=== PATIENT | female | born 1950 | race Caucasian/White ===

== ENCOUNTER 2023-01-11 23:15 | Emergency (ER) | payer MEDICARE, BC, SELFPAY ==
--- NOTE | 2023-01-11 23:46 | CRLHL7_ITS ---
For Patients: As a result of the Century Cures Act, medical imaging exams and procedure reports are released immediately into your electronic medical record. You may view this report before your referring provider. If you have questions, please contact your health care provider. Indication: Trauma. Technique: Right ankle, 3 views. Comparison: None. Findings/Impression: Bones: Acute nondisplaced/minimally displaced oblique lateral malleolar fracture. Joint spaces: Associated joint effusion. Ankle mortise appears congruent. Soft tissues: Associated soft tissue swelling. Dictated by Phong Fischer MD @ 01/12/2023 12:13:32 AM (Electronically Signed)
[2023-01-11 23:51] VITALS: BP 131/85; PULSE 74; RESP 16; TEMP 36.6; O2SAT 98; BMI 28.3
--- NOTE | 2023-01-12 01:06 | ED.GENADULT ---
HPI - General Adult General Date Seen: 01/12/23 Chief complaint: Extremity Pain/Injury, Lower Stated complaint: Fell and hit her ankle- R Side Time Seen by Provider: 01/12/23 00:29 Source: patient Mode of arrival: ambulatory Limitations: no limitations History of Present Illness HPI narrative: Patient is a 72-year-old female who was walking through the ER to from a friend's house when she stepped in a hole. She fell to the ground and was unable to get up by pushing off on the right ankle and foot. Once she has helped up she was able to ambulate but there was pain. She is treated for hypertension with amlodipine, lisinopril, propranolol. For depression she takes sertraline and BuSpar. Her new PCP at [facility] is Dr. Palma but she has not met her yet. Related Data Home Medications Medication Instructions Recorded Confirmed amlodipine 5 mg tablet 5 mg PO DAILY 01/11/23 01/11/23 buspirone 10 mg tablet 10 mg PO BID 01/11/23 01/11/23 lisinopril 20 mg tablet 20 mg PO DAILY 01/11/23 01/11/23 propranolol 80 mg capsule,24 80 mg PO DAILY 01/11/23 01/11/23 hr,extended release sertraline 100 mg tablet 100 mg PO BID 01/11/23 01/11/23 Allergies Allergy/AdvReac Type Severity Reaction Status Date / Time prochlorperazine AdvReac Verified 01/11/23 23:54 [From Compazine] Review of Systems Narrative: Review of systems is outlined above otherwise noted to be negative. She does have chronic anxiety and depression. She is treated for hypertension. [facility] Social History Smoking Status: Never smoker How often do you have a drink containing alcohol: monthly or less How many standard drinks containing alcohol do you have on a typical day: 3 or 4 AUDIT-C Alcohol total score: 2 Non-prescribed substance use: denies use Exam Narrative: Exam Narrative: Examination is limited to the right lower extremity. She has soft tissue swelling and tenderness over the lateral malleolus. No medial tenderness. No 5th metatarsal tenderness. Range of motion is full. No ligamentous laxity. Good distal pulses. Const: Vital Signs, click to edit/add: Vital Signs - 24 hr 01/11/23 23:51 01/12/23 01:13 01/12/23 01:14 Temperature 97.9 F 98.2 F 98.2 F Pulse Rate [Pulse Oximeter] 74 80 80 Respiratory Rate 16 16 16 Blood Pressure [[facility] Upper Arm] 131/85 125/78 125/78 Pulse Oximetry 98 98 Oxygen Delivery Me thod Room Air Room Air Course Course ED Course: Patient was seen and examined. X-ray of the right ankle is ordered. Reevaluation(s) Reevaluation #1: X-ray confirms a nondisplaced right distal fibular fracture. Patient is placed in a short-leg splint holding the ankle in 90? of dorsiflexion. She is instructed on how to use crutches. Vital Signs Vital signs: Initial Vital Signs Temperature 97.9 F 01/11/23 23:51 Temperature Source Temporal Artery Scan 01/11/23 23:51 Pulse Rate 74 01/11/23 23:51 Respiratory Rate 16 01/11/23 23:51 Blood Pressure 131/85 01/11/23 23:51 Blood Pressure Mean 100 01/11/23 23:51 Pulse Oximetry 98 01/11/23 23:51 Oxygen Delivery Method Room Air 01/11/23 23:51 Vital Signs Temperature 97.9 F 01/11/23 23:51 Pulse Rate 74 01/11/23 23:51 Respiratory Rate 16 01/11/23 23:51 Blood Pressure 131/85 01/11/23 23:51 Pulse Oximetry 98 01/11/23 23:51 Oxygen Delivery Method Room Air 01/11/23 23:51 Temperature 98.2 F 01/12/23 01:14 Pulse Rate 80 01/12/23 01:14 Respiratory Rate 16 01/12/23 01:14 Blood Pressure 125/78 01/12/23 01:14 Pulse Oximetry 98 01/12/23 01:13 Oxygen Delivery Method Room Air 01/12/23 01:13 Discharge Plan Discharge Clinical Impression: Closed fracture of distal end of right fibula Patient Disposition: Home, Self-Care Condition: Improved Additional Instructions: Ice, elevate, crutches with partial weight bearing, Tylenol or Ibuprofen for pain. Follow up with Orthopedics next week. Prescriptions: No Action lisinopril 20 mg tablet 20 mg PO DAILY sertraline 100 mg tablet 100 mg PO BID amlodipine 5 mg tablet 5 mg PO DAILY buspirone 10 mg tablet 10 mg PO BID propranolol 80 mg capsule,extended release 24hr 80 mg PO DAILY Follow Up/Referrals: Jeny Palma DO [Primary Care Provider] - Stand Alone Forms: [employer] Info Instructions
[2023-01-12 01:13] VITALS: BP 125/78; PULSE 80; RESP 16; TEMP 36.8; O2SAT 98
[2023-01-12 01:14] VITALS: BP 125/78; PULSE 80; RESP 16; TEMP 36.8
== END 2023-01-12 01:18 | disposition home or self-care (01) ==
PROVIDERS: Emergency Provider Family Medicine; PCP Family Medicine
DX: S82.831A Other fracture of upper and lower end of right fibula, initial encounter for closed fracture (principal); X50.1XXA Overexertion from prolonged static or awkward postures, initial encounter
CPT/HCPCS: 29515; 73610; 99282; 99283

== ENCOUNTER 2023-01-22 06:40 | Day surgery (SDC) | payer MEDICARE, BC, SELFPAY ==
[2023-01-22] VITALS (18 sets, daily range): BP systolic 107–145; BP diastolic 61–80; PULSE 60–77; RESP 14–18; TEMP 36–36.6; O2SAT 93–99; BMI 29.9
[2023-01-22] MEDS: LACTATED RINGERS 1000 ML 1,000 ML 100 ML IV (06:45)
[2023-01-22] MEDS: SODIUM CHLORIDE 0.9 % (FLUSH) 10 ML SYRINGE IVF (07:05)
--- NOTE | 2023-01-22 07:28 | SUR.PREOP ---
TIME?OUT:?0742 PT/RN/MDA?VERIFICATION?OF?SURGICAL?SITE Right Ankle,?PROCEDURE Adductor and Pop Block,?AND?CONSENT OBTAINED?PRIOR?TO?INVASIVE?PROCEDURE.
[2023-01-22] MEDS: MIDAZOLAM HCL 1 MG/ML inj IVP (07:43)
[2023-01-22] MEDS: fentaNYL 100 MCG/2 ML inj IVP (07:43)
--- NOTE | 2023-01-22 08:00 | CRLHL7_ITS ---
For Patients: As a result of the Cures Act, medical imaging exams and procedure reports are released immediately into your electronic medical record. You may view this report before your referring provider. If you have questions, please contact your health care provider. Indication: RIGHT ORIF ANKLE LATERAL MALLEOLAR Technique: Three fluoroscopic images of the right ankle. Fluoroscopic time 10.7 seconds. IMPRESSION: Fluoroscopic guidance for open reduction internal fixation distal fibular fracture. Dictated by Juventino Patterson MD @ 01/22/2023 9:40:49 AM (Electronically Signed)
--- NOTE | 2023-01-22 08:20 | W.PM.H&PU ---
History & Physical Update History & Physical Update H&P Reviewed and patient assessed: No changes noted
[2023-01-22] MEDS: CEFAZOLIN 2 GM in 0.9 % SODIUM CHLORIDE Mini-bag 100 ML IVPB (08:33)
--- NOTE | 2023-01-22 08:39 | W.PM.NB ---
Nerve Block Nerve Block Time Seen by Provider: 08:00 Date Seen: 01/22/23 Type of block requested by surgeon for post-operative analgesia: adductor canal Side: right Time out performed: Yes Verification of patient name: Yes Verification of date of : Yes Site marking: site marked Name of person performing procedure: Jamil Marija Continuous monitoring Was continuous monitoring of O2 sat, B/P, parking station attendant, recorded every 15 minutes?: Yes Procedure Checklist: sterile prep, needles and gloves Ultrasound guided. Images saved: Yes Medications given in 5ml increments after negative aspiration: Marcaine %: 0.5 mL: 20 Decadron (mg): 10 Precedex (mcg): 25 Patient tolerated procedure well: Yes Additional comments: Injected in 5mL increments after negative aspiration Block Charges Block Charge (with Pro Fee): Femoral Nerve Use of Ultrasound Machine for Block: Yes- US Guidance/pain block
--- NOTE | 2023-01-22 09:16 | P.ORPRC_ITS ---
Procedure Note Date of procedure: 01/22/23 Procedure: PREOPERATIVE DIAGNOSES: 1. Right ankle lateral malleolus fracture (with bimalleolar equivalent) - unstable on stress imaging POSTOPERATIVE DIAGNOSES: 1. Right ankle lateral malleolus fracture (with bimalleolar equivalent) - uns table on stress imaging NAME OF OPERATION: 1. Right ankle lateral malleolus open reduction with internal fixation. 2. 41672 - intraoperative fluoroscopy up to 1 hour. SURGEON: Michelet Blair MD STRATEGIC PROCUREMENT MANAGER: Juan WOODY; Of note, an pier master assistant was critical for this case to aide in patient positioning, leg manipulation, tissue retraction, closure, patient safety, & splinting. ANESTHESIA: Spinal +/- popliteal block. EBL: 5 mL IMPLANTS: Single Arthrex 3.5 mm interfragmentary screw as well as Arthrex distal fibular locking plate with 2.7 distal locking and 3.5mm proximal nonlocking screws. TOURNIQUET: 35 minutes at 300 torr. INDICATIONS: The patient is a pleasant, 72-year-old feet who sustained a right ankle injury in the recent past. They had difficulty bearing weight. Workup included xrays which revealed an unstable ankle fracture. Given these findings, surgery was recommended to stablize the ankle. FINDINGS: Closed, mildly comminuted lateral malleolus Noguera B ankle fracture with bimalleolar equivalent. The bone quality itself was fair approaching poor. He did not have great strength even with the interfragmentary screw, although this did provide compression to the fracture site. PROCEDURE: Following a thorough discussion of risks, benefits, and alternatives, consent was obtained and the right ankle was marked. The patient was brought to the operating room and placed supine on the operating table. Induction of anesthesia was undertaken. Appropriate time out was performed identifying proper patient, site and procedure. 1 gram of iv Ancef was administered within 1 hour of incision preoperatively. The right lower extremity was prepped and draped in the appropriate sterile fashion using ChloraPrep prep. The limb was exsanguinated and the tourniquet inflated. A longitudinal incision was made overlying the distal fibula. Sharp incision through skin and subcutaneous tissue, while protecting any crossing neurologic structures, was performed allowing subperiosteal elevation. The fracture was encountered, and cleared of interposed periosteum and fracture hematoma. The joint was entered, and thoroughly irrigated with normal saline performed. The fracture was reduced and temporarily held with reduction clamps. Initially, an interfragmentary screw was drilled, measured, overdrilled, and placed. This allowed some holding power in the fracture itself. However, as the bone quality was fair-poor, we elected to maintain the clamp while applying the distal fibular locking plate. The plate was initially applied with BB tacks and C-arm confirmed proper position of the plate as well as fracture reduction. Distal fibular locking screws were drilled and measured and placed and proximal nonlocking and locking screws were also placed accordingly. After confirming appropriate reduction/positioning on C-arm fluoroscopic imaging, the fracture was stabilized with the hardware noted. Fluoroscopy was u tilized for confirmation of screw length / positioning. Additionally, the syndesmosis was stressed and found to be stable. At this stage, the wound was thoroughly irrigated with normal saline. Closure was performed with #0 Vicryl for the deep periosteum, tourniquet deflated and hemostasis achieved. 3-0 Vicryl for the subcutaneous, and 4-0 statafix for subcuticular layers completed the closure. Dermabond was applied, dressings were applied, and a sugar-tong splint was applied. The patient was awoken from anesthesia and transferred to the PACU in stable condition. PLAN: 1. Elevate operative extremity. 2. Encouraged ice. 3. Oxycodone for pain as needed. 4. Follow up with PA visit in 1-3 weeks for wound check and splint removal and short-leg cast application. Anticipate 4 4 weeks of immobilization accordingly and then transition to a Cam boot. 5. Toe touch weightbearing operative extremity at this time due to fair-poor bone quality.
--- NOTE | 2023-01-22 09:46 | P.ANES_ITS ---
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
[2023-01-22] MEDS: OxyCODONE/APAP 5-325 TABLET PO (11:13)
[2023-01-22] MEDS: IBUPROFEN 200 MG TABLET 400 MG PO (11:13)
--- NOTE | 2023-01-22 14:56 | W.PM.NB ---
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 Images saved: Yes Medications given in 5ml increments after negative aspiration: Marcaine %: 0.5 mL: 15 Needle gauge: 20 Patient tolerated procedure well: Yes Block Charges Block Charge (with Pro Fee): Sciatic Nerve Use of Ultrasound Machine for Block: Yes- US Guidance/pain block
== END 2023-01-22 11:48 | disposition home or self-care (01) ==
PROVIDERS: PCP Family Medicine; Visit Provider Orthopaedic Surgery Sports Medicine
PROC: (CPT 27792; principal; 2023-01-22 08:00)
DX: S82.61XA Displaced fracture of lateral malleolus of right fibula, initial encounter for closed fracture (principal); G89.18 Other acute postprocedural pain
CPT/HCPCS: 27792; 01480; 64445; 64447; 73600; 76000; 76942; 99100; A4580; A9270; C1713; J0665; J0690; J1100; J2250; J2371; J2405; J2704; J3010; J7120

== ENCOUNTER 2023-04-25 15:00 | Outpatient (RCR) | payer MEDICARE, BC, SELFPAY ==
--- NOTE | 2023-02-23 14:51 | PT.OPEX ---
PT [place] Outpatient Eval initial eval - needs signature PT [facility] Outpatient Eval Start: 02/22/23 12:54 Freq: Status: Active Protocol: Document 02/23/23 12:17 REAGAN (Rec: 02/23/23 14:48 REAGAN [email or web address]) E-signed By Med Hunter DPT Physical Therapy Outpatient Evaluation Insurance Information Recert Due Date 05/19/23 Insurance Name Medicare B Medical Diagnosis right ankle ORIF DOS 01/22/23 Treating Diagnosis right ankle pain muscle weakness gai abnormality Referring MD Jeffrey contreras Subjective Subjective Nettie comes into clinic 4 weeks post op ORIF of R ankle. This initally began with a fall when leaving her friends house and stepped in the yard where her foot got caught in a hole leading to the break. She was using a knee scooter and in a cast. Did see Jeffrey HERRERA yesterday to remove her cast and put her in a CAM boot and discussed with her WBING and use of FWW. There was some concern of her circulation on her R foot per Jeffrey but stated just to monitor right now. Current Work Status Retired Precautions Treatment Precautions/Contraindications May begin to slowly progress weightbear as tolerated while in the Cam boot, walker/cane for assistance. Start with up to 25% weight-bearing on this right lower extremity for the 1st week, and slowly advance after this. Likely 50% weight -bearing by 2 weeks from surgery. depression, htn, osteoporosis Objective Other/Pertinent Objective FOOT ALIGNMENT/GAIT ambulates in step too pattern with PWB using fww, decreased pace ANKLE ROM PF: R-38 L- 54 DF: R-can reach neutral L- 8 INversion: R- 17L-29 EVersion: R-8 L- 18 LE MMT Dorsiflexion/heel walk: R 4-/5 L5 /5 Plantarflexion/toe walk:R 4/5 L 5/5 INV: R 3+/5 L 4+/5 GHASSAN: R 3/5 L 4+/5 Great Toe Extension: R4/5 L5/5 JOINT MOBILITY/PALPATION decreased dorsal circulation to R foot Assessment Assessment/Impression POST-OP Patient presents with signs and symptoms consistent with diagnosis of Rt ankle ORIF, s/ p 4 week post operative. Rehab potential is good. Claros impairments include: decreased ROM and strength of the extremity, poor balance and compensatory gait patterning, pain/limitations with functional activities such as squatting, walking, and climbing stairs. Skilled PT is required to address these claros impairments and to provide and progress with an appropriate home exercise program. Plan of Care Rehabilitation Potential Good Physical Therapy Goals STG Patient will demonstrate/ report ability to walk for 30 minutes with pain level <1/10, to allow for community and household ambulation within 6 weeks Patient will demonstrate/ report ability to stand for 10 minutes with pain level <1/10 , to allow for home , recreational and work tasks within 6 weeks Pt will be independent with HEP within 6 weeks to allow for independence and continued improvement past formal therapy LTG Patient will demonstrate/ report ability to climb 12 steps with handrail in reciprocal fashion, to allow for household and community ambulation within 12 weeks Patient will demonstrate/ report ability to walk for 45- 60 minutes with pain level <1/ 10, to allow for community and household ambulation within 12 weeks Patient will demonstrate/ report ability to stand for 15 -20 minutes with pain level <1 /10, to allow for home , recreational and work tasks within 12 weeks Coordination/Communication With Referral Source Treatment Plan/Direct Interventions Gait Training,Joint Mobilization,Manual Therapy, Neuromuscular Re-ed,Self-Care/ Home Management,Therapeutic Activities,Therapeutic Exercises Frequency/Duration 1-2 visits a week 8-16 visits Patient Will Be Discharged From Therapy Completion of LTG(s), Independent w/HEP Evaluation Billing Untimed Code Treatment Minutes 25 Complexity Low Certification Information Physician Comment/Change : Physician NPI Number #
== END 2023-07-10 10:26 | disposition home or self-care (01) ==
PROVIDERS: PCP Family Medicine; Visit Provider Physician Assistant Surgical
DX: Z98.890 Other specified postprocedural states (principal); M25.571 Pain in right ankle and joints of right foot; M62.81 Muscle weakness (generalized); R26.9 Unspecified abnormalities of gait and mobility; Z51.89 Encounter for other specified aftercare
CPT/HCPCS: 97110; 97112; 97116; 97140; 97161